=== PATIENT | female | born 1965 | race Caucasian/White ===

== ENCOUNTER → 2024-10-17 14:46 | Outpatient (REF) | payer OTHER, SELFPAY | LOC: HWWDC 14:46 | PROVIDERS: ATTENDING PHYSICIAN Nurse Practitioner Adult Health | DX: Z12.31 Encounter for screening mammogram for malignant neoplasm of breast (principal) | CPT/HCPCS: 77063; 77067 ==

== ENCOUNTER 2024-11-29 14:31 | Emergency (ER) | payer OTHER, SELFPAY ==
[2024-11-29 14:33] VITALS: BP 141/77
[2024-11-29 14:58] LABS: Hematocrit 35.9 % (37.0-47.0); Hemoglobin 11.9 g/dL (12.0-16.0); Mean Corp Hgb Conc. 33.1 g/dL (33.0-37.0); Mean Corpuscular Volume 86.3 fL (81.0-99.0); Nucleated Red Blood Cells % 0 %; Platelet Count 205 10^3/uL (130-400); Red Cell Dist. Width 13.2 % (11.5-14.5)
--- NOTE | 2024-11-29 15:12 | ED.GENMED ---
History of Present Illness
General
Chief Complaint: Cardiac Symptoms
Source: patient
Exam Limitations: none
Time Seen by Provider: 11/29/24 15:11
History of Present Illness
History of Present Illness:
58yoF with no significant past medical history presenting for evaluation of chest pain. Symptoms began 4 days ago. She reports a sharp pain in the left side of her chest and feeling she is not able to take a deep enough breath. Pain is worse with
movement and deep breathing. Pain radiates to the back when she takes a deep breath. Her dog jumped on her chest the day before her symptoms started so she assumed that the pain was from the injury. Patient started to develop belching a few days
ago. She told her about her symptoms today and he encouraged her to come to the ED for evaluation. Patient denies any cough, vomiting, leg swelling, calf pain.
Past History
Past History
ED Past Medical History: None
ED Past Surgical History: None
Social History
Tobacco: Non-smoker
Alcohol: None
Drug: None
Personal:
Living: with family
Employment: Employed
Family History
Family History: Diabetes and Early CAD
Phy Exam
General Physical Exam
General Presentation: well appearing and no apparent distress
General Skin: warm and dry
General Habitus: normal
General Mental: alert
ENT Exam
ENT Exam: normocephalic
Cardiovascular Exam
Cardiovascular Exam: regular rate/rhythm, no edema, no murmur and normal peripheral pulses
Pulmonary Exam
Pulmonary Exam: lungs clear, no respiratory distress, no rales, no crackles, no rhonchi, no wheezing and other (+Tenderness to L anterior chest wall. No skin changes.)
Neurological Exam
Neurological Exam: alert
[place] Coma Scale
Eye Opening: Spontaneous
Verbal Response: Oriented
Motor Response: Obeys Commands
GCS Total Score: 15
Skin Exam
Skin Exam: normal color and warm/dry
Psychiatric Exam
Psychiatric Exam: normal mood/affect
Course
Orders/Labs/Results
Orders:
Orders
11/29/24 14:36
Electrocardiogram (*1) Urgent
Reason for Study: Chest Pain
EKG- Treatment ONCE
11/29/24 14:47
Complete Blood Count/With Diff Urgent
Comprehensive Metabolic Panel Urgent
Troponin I Urgent
11/29/24 15:39
D-Dimer Urgent
11/29/24 16:25
CR Chest - 2 Views Urgent
Comment:
Reason For Exam: CP
11/29/24 17:20
Incentive Spirometry [Rx Incentive Spirometry] [RESP] Urgent
Frequency: q1h while awake
Abnormal Lab Results
11/29/24
14:47
RBC 4.16 L 10^6/uL
(4.20-5.40)
Hgb 11.9 L g/dL
(12.0-16.0)
Hct 35.9 L %
(37.0-47.0)
MPV 10.9 H fL
(7.4-10.4)
Absolute Monos (auto) 0.8 H 10^3/uL
(0.1-0.6)
Monocytes % 14.8 H %
(1.7-9.3)
11/29/24 14:47
11/29/24 14:47
Vital Signs
Initial and Last Documented VS:
Initial Vital Signs
Temp Pulse Resp BP Pulse Ox
98.6 F 87 16 141/77 97
11/29/24 14:33 11/29/24 14:33 11/29/24 14:33 11/29/24 14:33 11/29/24 14:33
Last Documented Vital Signs
Temp Pulse Resp BP Pulse Ox
98.6 F 63 17 127/68 98
11/29/24 14:33 11/29/24 17:15 11/29/24 17:15 11/29/24 17:01 11/29/24 17:15
MDM/Problems Addressed
Differential Diagnosis Includes:
58yoF here with L chest pain x 3 days. Feels like she cannot take a deep enough breath. Started after dog jumped on her chest. Now having belching. VSS. She is well-appearing no acute distress. There is reproducible chest wall tenderness on exam.
Bilateral breath sounds equal. Differential diagnosis includes but is not limited to: Musculoskeletal, pneumonia, pneumothorax, consider PE, less likely ACS
Initial ED plan: Workup initiated in triage. No ischemic changes on EKG and troponin within normal limits. Will check D-dimer and chest x-ray versus CT depending on D-dimer results.
*Pulse Oximetry
SaO2: 97
Oxygen Mode of Delivery: Room air
Patient hypoxic: no (97%)
*EKG
Interpreted by ED Provider?: Yes
EKG Intrepretation Date: 11/29/24
Heart Rate: 64
Rate: normal
Rhythm: sinus
[place]: normal axis
Interval: normal interval
QRS Pattern: normal QRS
Ischemia: no ischemia
*Critical Care Note
Total Time (30-74mins, 75-104mins- exclusive of procedures): Not Applicable
Update Note
Update Note:
D-dimer normal making PE very unlikely. Chest x-ray obtained which shows a subtle opacity in the left lower lobe most suggestive of atelectasis although pneumonia cannot be excluded. Discussed results with patient. She is not having any cough,
fever, or leukocytosis. She also has had pneumonia in the past and states this feels different. Suspect atelectasis related to her chest wall injury. No indication for antibiotics. Incentive spirometer provided and supportive care reviewed.
Advised follow-up with PCP and ED return precautions discussed. Patient discharged in stable condition.
ED Attending Note
-
Portions of this chart may have been created with voice recognition software.� Occasional wrong word or��sound alike� substitutions may have occurred due to the inherent limitations of voice recognition software.
Discharge Plan
Departure
Patient Disposition: Home (Routine Discharge)
Date of Disposition: 11/29/24
Time of Disposition: 17:21
Patient with high blood pressure during this ER visit?: No
Discharge Problem:
Left-sided chest wall pain, Atelectasis
Instructions: Chest Pain (DC)
Prescriptions:
No Action
fexofenadine-pseudoephedrine [Moira-D 12 Hour] 1 EACH tablet extended release 12 hr
1 ea PO DAILY
omeprazole magnesium [Prilosec OTC] 20 MG tablet,delayed release (DR/EC)
20 mg PO DAILY Qty: 0 0RF
Activity Restrictions/Additional Instructions:
Apply heat to affected area. Take Tylenol and ibuprofen for pain. Use incentive spirometer every hour while awake.
Please follow-up with your family doctor next week. Return to the ER wtih any new or worsening symptoms.
Interventions
Interventions:
*Risk Screen - Suicide Last Done: 11/29/24 14:33
*General Assessment Last Done: 11/29/24 14:33
*Neglect/Abuse Screening Last Done: 11/29/24 15:53
*ED- Fall Risk Assessment Last Done: 11/29/24 15:53
*ED COVID-19 Vaccine History Last Done: 11/29/24 15:53
*Nursing Disposition Last Done: 11/29/24 17:49
ED- Pulmonary Assessment Last Done: 11/29/24 15:53
ED- Cardiac Assessment Last Done: 11/29/24 15:53
Discharge Date and Time
Discharge Date/Time: 11/29/24 17:50
Print Language: LATVIAN
[2024-11-29 15:19] LABS: ALT (SGPT) 15 U/L (0-35); AST (SGOT) 21 U/L (14-36); Albumin 4.5 g/dl (3.5-5.0); Alkaline Phosphatase 68 U/L (38-126); Blood Urea Nitrogen 12 mg/dl (7-17); Calcium 9.8 mg/dl (8.4-10.2); Carbon Dioxide 27 mmol/L (22-30); Chloride 104 mmol/L (98-107); Glucose 98 mg/dl (70-99); Potassium 4.2 mmol/L (3.5-5.1); Sodium 139 mmol/L (135-145); Total Protein 6.6 g/dl (6.3-8.2); eGFR > 60.00
[2024-11-29 15:30] LABS: Troponin I < 0.012 ng/ml
[2024-11-29 16:00] VITALS: BP 117/66
[2024-11-29 16:11] LABS: D-Dimer 0.31 ug/mlFEU (0.00-0.50)
[2024-11-29 17:01] VITALS: BP 127/68
== END 2024-11-29 17:50 | disposition home or self-care (01) ==
LOC: EMR 14:31
PROVIDERS: Physician Assistant; EMERGENCY PHYSICIAN Emergency Medicine; FAMILY PHYSICIAN Nurse Practitioner Adult Health
DX: R07.89 Other chest pain (principal); W54.1XXA Struck by dog, initial encounter; J98.11 Atelectasis
CPT/HCPCS: 99284; 71046; 80053; 84484; 85025; 85379; 93005

== ENCOUNTER 2024-12-19 06:18 | Day surgery (SDC) | payer OTHER, SELFPAY | END 2024-12-19 14:57 | disposition home or self-care (01) | LOC: GI 06:18 | PROVIDERS: ATTENDING PHYSICIAN Internal Medicine Gastroenterology | DX: Z12.11 Encounter for screening for malignant neoplasm of colon (principal); K57.30 Diverticulosis of large intestine without perforation or abscess without bleeding; K64.8 Other hemorrhoids; D12.2 Benign neoplasm of ascending colon; D12.3 Benign neoplasm of transverse colon | CPT/HCPCS: 45385; 45380; 88305 ==